=== PATIENT | female | born 1985 | race Caucasian/White ===

== ENCOUNTER → 2024-04-26 16:10 | Outpatient (CLI) | payer OTHER, MEDICAID, SELFPAY | PROVIDERS: Family Provider Internal Medicine; PCP Family Medicine; Referring Provider Family Medicine; Visit Provider Family Medicine | DX: R10.2 Pelvic and perineal pain (principal) | CPT/HCPCS: 87086 ==

== ENCOUNTER → 2024-05-10 07:16 | Outpatient (CLI) | payer OTHER, MEDICAID, SELFPAY ==
--- NOTE | 2024-05-10 07:18 | DI.MRI.S_ITS ---
PROCEDURE: MR KNEE RT WO CON INDICATIONS: Right knee pain TECHNIQUE: Noncontrast sagittal PD fast spin echo and T2 fast spin echo with fat saturation, sagittal 3-D FLASH with fat saturation; coronal T1 spin echo and PD fast spin echo with fat saturation, and axial PD fast spin echo with fat saturation through the knee. COMPARISON: [facility], , KNEE 3V RIGHT, 09/28/2014, 13:28. FINDINGS: Image quality: Excellent. Menisci: Moderate ill-defined STIR signal elevation at the posterior meniscal capsular junction of the posterior horn medial meniscus. The medial and lateral menisci demonstrate otherwise normal morphology and internal signal. The meniscal root ligaments appear intact. Cruciate ligaments: The anterior and posterior cruciate ligaments appear intact. Medial structures: The medial collateral ligament appears intact. Visualized portions of the pes anserinus tendons appear normal. No abnormal bursal fluid. Lateral structures: The lateral collateral ligament, long and short heads of the biceps femoris tendon appear intact. The popliteus tendon appears normal. Iliotibial band appears normal. Anterior structures: The quadriceps and patellar tendons appear intact. Patellar alignment is normal. No femoral trochlear dysplasia or ventral trochlear prominence. No edema in the infrapatellar fat pad. Bones and cartilage: No bone marrow contusions or fractures. There is mild articular cartilage loss diffusely overlying the weight-bearing aspects of the medial femoral condyle and medial tibial plateau. Joint space: There is physiologic knee joint fluid. No Dunbar's cyst. Normal appearing synovial plicae are incidentally noted. IMPRESSION: 1. Meniscal capsular junction injury involving the medial meniscus. 2. Medial compartment articular cartilage loss. Dictated by: Angelique Acosta M.D. on 05/10/2024 at 9:54 Approved by: Angelique Acosta M.D. on 05/10/2024 at 9:57
== END ==
PROVIDERS: Family Provider Internal Medicine; PCP Family Medicine; Referring Provider Family Medicine; Visit Provider Family Medicine
DX: S83.8X1A Sprain of other specified parts of right knee, initial encounter (principal); M25.561 Pain in right knee
CPT/HCPCS: 73721

== ENCOUNTER → 2024-05-17 09:53 | Outpatient (CLI) | payer OTHER, SELFPAY | PROVIDERS: Family Provider Internal Medicine; PCP Family Medicine; Visit Provider Family Medicine | DX: R10.2 Pelvic and perineal pain (principal) | CPT/HCPCS: 87086 ==

== ENCOUNTER → 2024-05-17 10:31 | Outpatient (CLI) | payer OTHER, SELFPAY ==
[2024-05-17 12:02] LABS: Add Manual Diff / Slide Review NO; Basophils Absolute Auto 100 /uL (0-100); Basophils Percent Auto 0.5 % (0-2); Eosinophils Absolute Auto 100 /uL (0-450); Eosinophils Percent Auto 0.7 % (2-4); Hematocrit 44.3 % (36-46); Hemoglobin 14.5 g/dL (12.0-16.0); Lymphocytes Absolute Auto 2500 /uL (1100-4500); Lymphocytes Percent Auto 22.3 % (25-40); Mean Corpuscular HGB Conc 32.7 % (30-36); Mean Corpuscular Hemoglobin 28.6 PG (26-34); Mean Corpuscular Volume 87.3 fL (80-100); Monocytes Absolute Auto 700 /uL (0-900); Monocytes Percent Auto 6.3 % (3-14); Neutrophils Absolute Auto 7900 /uL (1500-7000); Neutrophils Percent Auto 70.2 % (50-75); Platelet Count 398 X10^3/uL (150-400); Red Blood Cell Count 5.07 X10^6/uL (4.0-5.2); Red Cell Distribution Width 13.7 % (11.6-14.8); White Blood Cell Count 11.3 X10^3/uL (4.5-11.0)
[2024-05-17 12:57] LABS: Alanine Aminotransferase 15 IU/L (<35); Albumin 4.8 g/dL (3.5-5.0); Albumin Globulin Ratio 2.1 (1.0-2.8); Alkaline Phosphatase 60 U/L (38-126); Aspartate Aminotransferase 20 IU/L (14-36); BUN Creatinine Ratio 20.5 (6-22); Bilirubin Total 0.6 mg/dL (0.2-1.3); Blood Urea Nitrogen 16 mg/dL (7-17); Calcium 9.9 mg/dL (8.4-10.2); Carbon Dioxide 24 mmol/L (22-32); Chloride 104 mmol/L (98-107); Cholesterol 186 mg/dL (140-199); Estimated Glomerular Filt Rate > 60 mL/min (>60); Globulin 2.3 g/dL (1.7-4.1); Glucose 88 mg/dL (70-100); HDL Cholesterol 50 mg/dL (40-60); HEMOLYSIS < 15 (0-50); Potassium 4.4 mmol/L (3.4-5.1); Sodium 137 mmol/L (137-145); Total Protein 7.1 g/dL (6.3-8.2)
[2024-05-17 13:41] LABS: LDL Cholesterol Calculated 117 mg/dL (<100); Triglycerides 97 mg/dL (35-150)
== END ==
PROVIDERS: Family Provider Internal Medicine; PCP Family Medicine; Referring Provider Family Medicine; Visit Provider Family Medicine
DX: I10 Essential (primary) hypertension (principal); R10.2 Pelvic and perineal pain
CPT/HCPCS: 36415; 80053; 80061; 81002; 85025; 87077; 87086

== ENCOUNTER → 2024-06-08 13:26 | Outpatient (CLI) | payer OTHER, SELFPAY ==
--- NOTE | 2024-06-08 13:29 | DI.US.S_ITS ---
PROCEDURE: US PELVIC COMPLETE INDICATIONS: PELVIC PRESSURE TECHNIQUE: Real-time scanning was performed of the pelvic organs, with image documentation. Additional endovaginal scanning was necessary due to incomplete visualization of the adnexal and endometrial structures by transabdominal scanning. COMPARISON: [facility], US, US PELVIC COMPLETE WITH TRANSVAGINAL, 01/30/2022, 11:31. FINDINGS: Uterus: Uterus is anteverted and normal in size at 9.1 x 6.1 x 4.6 cm. The myometrium is heterogeneous without dominant mass. Linear echogenic foci are present at the cornea bilaterally suggesting tubal occlusion devices. Nabothian cysts are present in the cervix. The endometrial contour is indistinct. The endometrium measures 9.6 mm combined thickness. Normal vascularity in the cervix and uterus. Ovaries: The right ovary measures 4.6 x 2.6 x 2.4 cm, with a calculated ovarian volume of 13.6 cc. The left ovary measures 3.1 x 2.6 x 2.0 cm, with a calculated ovarian volume of 8.4 cc. The ovaries have a normal sonographic appearance. Greater than 12 follicles are present in each ovary. Follicles appear predominantly peripherally displaced . There are distended bilateral adnexal venous structures with slow flow. These measure between 7.0 and 8.7 mm in diameter. Other: No pathologic free abdominal or pelvic fluid. IMPRESSION: Prominent ovaries with numerous follicles bilaterally, similar in morphology compared to the prior exam. This may be physiologic, however in the appropriate clinical setting, this can be seen in polycystic ovarian syndrome. Correlate with hyper androgen is a. Heterogeneous uterus with indistinct endometrial contour may indicate adenomyosis. Prominent pelvic vasculature bilaterally can be seen in pelvic congestion syndrome. We strive to produce accurate, complete, and clear reports of imaging services. To assist us in improving patient care, this report was composed using standard report templates and voice recognition software. Therefore, it may contain abnormal punctuation, insertions and/or omissions. Occasional wrong-word or sound-alike substitutions may occur. Though we review the report and make efforts to correct it, we do recommend that the report be read carefully in proper context to recognize any text inaccuracies. Dictated by: Delma Martinez M.D. on 06/08/2024 at 21:25 Approved by: Delma Martinez M.D. on 06/08/2024 at 21:31
== END ==
LOC: US 13:28
PROVIDERS: Family Provider Internal Medicine; PCP Family Medicine; Referring Provider Family Medicine; Visit Provider Family Medicine
DX: R10.2 Pelvic and perineal pain (principal); N88.8 Other specified noninflammatory disorders of cervix uteri
CPT/HCPCS: 76830; 76856

== ENCOUNTER 2024-07-04 12:05 | Day surgery (SDC) | payer OTHER, SELFPAY ==
[2024-06-27 14:59] VITALS: BMI 22.8
--- NOTE | 2024-07-04 | PATH_ITS ---
[facility] Accession Number: [id number] No. of containers..01 Tissue . 01 Material submitted: . cervix - ANTERIOR AND POSTERIOR LIP OFOF CERVIX . 01 Clinical history: . ANTERIOR AND POSTERIOR LIP OF CERVIX SHORT SUTURE AT 6 O'CLOCK AND LONG SUTURE AT 12 O'CLOCK . 01 Diagnosis: CERVIX, LEEP: Rare small foci of low-grade squamous intraepithelial lesion (TYLER 1) in a background of prominent inflammation and reactive changes. Margins free of lesional tissue. Negative for residual high-grade squamous intraepithelial lesion. Negative for invasive carcinoma. [facility] 07/08/2024 1104 Local . 01 Comment: Immunohistochemistry for p16 is performed on blocks A1-A4 and is negative. . Technical Note: The immunohistochemical stains reported were performed with appropriate controls at [facility] ([facility] [address], Located within [facility] [address]). This test was developed, and the performance characteristics were validated by [facility]. It has not been cleared or approved by the Food and Drug Administration. . 01 Electronically signed: . Dolly Camejo DO, Pathologist NPI- [id number] . 01 Gross description: . Received in formalin with two patient identifiers and anterior and posterior lip of cervix, are two oriented fragments of cervix. The first is linear and has a long suture at one edge designating 12 o'clock per the requisition and measuring 2.3 x 1.5 x 1.0 cm. The margin is inked blue and the fragment is serially sectioned. The second fragment has a short suture designating 6 o'clock per the requisition, and measuring 2.0 x 0.5 x 0.2 cm, is inked green and serially sectioned. The specimen is submitted entirely as follows: . A1: 3 o'clock half of the 12 o'clock fragment. A2: 9 o'clock half of the 12 o'clock fragment. A3: 3 o'clock half of the 6 o'clock fragment. A4: 9 o'clock half of the 6 o'clock fragment. ([id number]) /MRV 07/05/20242032 Local . 01 Pathologist provided ICD-10: R87.613 . 01 CPT . 657731 Specimen Comment: A courtesy copy of this report has been sent to [phone] Performed at: [address] [facility] [address], [place], [place] [id number] MD Bryant Chacon MD Phone: [phone]
--- NOTE | 2024-07-04 12:58 | PM.GYNHP.1 ---
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 She is here for a LEEP cone biopsy of the cervix. [facility] Medical History (Updated 06/15/24 @ 15:18 by Sarah Camacho MD) Wears glasses Acne HTN (hypertension) Generalized anxiety disorder (03/03/14) Chronic back pain (01/16/14) Concussion Surgical History (Updated 05/03/24 @ 19:45 by Gela Romeo) Anesthesia History of tubal ligation (~2013) Family History (Updated 05/03/24 @ 19:45 by Gela Romeo) Sister Diabetes mellitus Social History Smoking Status: Current every day smoker Meds Home Medications and Allergies Home Medications Medication Instructions Recorded Confirmed Type No Known Home Medications 07/04/24 07/04/24 History Allergies Allergy/AdvReac Type Severity Reaction Status Date / Time ibuprofen [IBUPROFEN] Allergy Mild VOMITING Verified 07/04/24 12:40 venlafaxine [VENLAFAXINE] AdvReac Intermediate NIGHTMARES Verified 07/04/24 12:40 * Pain Agree AdvReac Mild 04/25/13 Uncoded 06/17/24 14:[address] Stock Exam Narrative Exam Narrative: HEENT: No thyromegaly, no anterior cervical or supraclavicular lymphadenopathy. Lungs:Clear to auscultation bilaterally, no wheezes. Cardiovascular: Regular rate and rhythm, no murmurs, rubs, or gallops. Abdomen: Well-healed scars. No hepatosplenomegaly. No masses palpable. External genitalia: Normal Vagina: Normal Cervix: Normal Bimanual exam: 6 Week size anteverted uterus. Mobile. Extremities: No edema Assessment & Plan Assessment & Plan narrative: Assessment: 38-year-old 4 para 3 with TYLER 2 confirmed by colposcopic biopsy Plan: LEEP cone biopsy of the cervix The risks, benefits, and alternatives to the procedure were explained to the patient. The risks including bleeding and infection. She understands these risks and agrees to proceed. A full par Q was held and consent form was signed. Time-Based Coding :: [TOTAL MINUTES] spent with patient and on the chart (including review of chart, obtaining history, exam, reviewing outside data, placing orders, documenting exam and treatment plan, and counseling patient) on [DATE].
[2024-07-04 12:59] VITALS: BP 144/75; PULSE 92; RESP 16; TEMP 36.6; O2SAT 98; BMI 22.8
--- NOTE | 2024-07-04 13:08 | PM.PREOP ---
Pre-operative Note Interval Note History & Physical reviewed/Exam performed by Physician: Yes Changes to H&P: No H&P completed within 30 days and has changed as indicated here:: 07/04/24
--- NOTE | 2024-07-04 13:50 | PM.GYNOP.1 ---
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 Surgeon: Xin Covarrubias Anesthesia Type: General (LMA) Operative Notes Findings: Lugol's light surrounding the cervical os Closure Type: not applicable Specimen(s): other (Anterior and posterior lips of the cervix. Short suture at 6 o'clock, long suture at 12 o'clock) Estimated blood loss (mL): 5 Blood products transfused: none Procedure in detail: After informed consent was obtained, the patient was taken to the operating room where she was placed in the dorsal supine position. After adequate LMA general anesthesia was achieved, she was placed in the dorsal lithotomy position, and prepped and draped in the usual sterile fashion. A time-out was performed. A plastic coated bivalve speculum was placed into the vagina. Lugol solution was applied to the cervix. There were Lugol's light areas surrounding the cervical os. Using the 20 mm loop, the anterior and posterior lips of the cervix were excised. They were tagged with short suture at 6 o'clock and long suture at 12 o'clock. The ball cautery was used for hemostasis. Settings were at 80 cut and 60 cautery. The single-tooth tenaculum was removed from the anterior lip of the cervix. The bivalve speculum was removed from the vagina. Sponge, lap, and instrument counts were correct x2. The patient tolerated the procedure well, and was taken to PACU in stable condition. Complications: none Post-operative Condition: stable Disposition: PACU Plan for aftercare: Home after recovery
[2024-07-04 13:56] VITALS: BP 120/79; PULSE 72; RESP 19; TEMP 36.2; O2SAT 99
[2024-07-04 14:02] VITALS: BP 120/86; PULSE 79; RESP 14; O2SAT 99
[2024-07-04 14:08] VITALS: BP 133/83; PULSE 76; RESP 16; O2SAT 100
[2024-07-04 14:10] VITALS: BP 119/82; PULSE 76; RESP 16; TEMP 36.4; O2SAT 99
[2024-07-04] MEDS: OXYCODONE IR 5 MG TABLET PO (14:20)
== END 2024-07-04 14:38 | disposition home or self-care (01) ==
PROVIDERS: Family Provider Internal Medicine; PCP Family Medicine; Referring Provider Obstetrics & Gynecology; Visit Provider Obstetrics & Gynecology
PROC: 0UBC7ZZ Excision of Cervix, Via Natural or Artificial Opening (ICD-10-PCS; CPT 57522; principal; 2024-07-04 14:45)
DX: R87.810 Cervical high risk human papillomavirus (HPV) DNA test positive (principal); F17.210 Nicotine dependence, cigarettes, uncomplicated; N87.0 Mild cervical dysplasia
CPT/HCPCS: 57522; 81025; J1100; J1885; J2250; J2405; J2704; J3010